=== PATIENT | female | born 1995 | race Hispanic/Latino ===

== ENCOUNTER 2024-05-18 17:05 | Day surgery (SDC) | payer OTHER ==
[2024-05-18] MEDS ORDERED: hydrALAZINE 20 MG/ML VIAL SLOW IVP PRN (18:54)
[2024-05-19 13:57] LABS: Chlamydia by PCR, Vaginal Swab Not Detected (NotDetected); GC by PCR, Vaginal Swab Not Detected (NotDetected)
== END 2024-05-18 21:12 | disposition home or self-care (01) ==
LOC: CSHLD/OP 17:05
PROVIDERS: ATTEND Family Medicine
DX: O46.93 Antepartum hemorrhage, unspecified, third trimester (principal); O99.891 Other specified diseases and conditions complicating pregnancy; R51.9 Headache, unspecified; Z79.82 Long term (current) use of aspirin; Z79.899 Other long term (current) drug therapy; Z3A.34 34 weeks gestation of pregnancy
CPT/HCPCS: 87480; 87491; 87510; 87591; 87660; 99285

== ENCOUNTER 2024-06-22 06:32 | Inpatient (IN) | payer MEDICAID, OTHER, SELFPAY ==
[2024-06-22] MEDS ORDERED: Dexamethasone 10 MG/ML VIAL ONE (08:42)
[2024-06-22] MEDS ORDERED: Oxytocin 10 UNITS/ML VIAL ONE (08:42)
[2024-06-22] MEDS ORDERED: PHENYLEPHRINE-NS 100 MCG/ML 10 ML SYRINGE ONE (08:42)
[2024-06-22] MEDS ORDERED: Ondansetron PF 4 MG/2 ML Vial ONE (08:42)
[2024-06-22] MEDS ORDERED: Morphine PF 10 MG/10 ML VIAL ONE (08:42)
[2024-06-22] MEDS ORDERED: Ketorolac Tromethamine 30 MG (1 mL) VIAL ONE (21:07)
[2024-06-23] MEDS ORDERED: Ketorolac Tromethamine 30 MG (1 mL) VIAL ONE ×2 (03:31→11:35)
[2024-06-23] MEDS ORDERED: Docusate 100 MG CAP ONE ×2 (08:30→21:10)
[2024-06-23] MEDS ORDERED: Prenatal Vitamin 1 TAB ONE (08:30)
[2024-06-23] MEDS ORDERED: HYDROcodone/Acetaminophen 5/325 mg Tablet ONE ×3 (08:31→21:10)
[2024-06-23 18:25] LABS: #Basophils 0.08 10x3/uL (0.0-0.2); #Eosinophils 0.15 10x3/uL (0.0-0.5); #Monocytes 1.56 10x3/uL (0.0-1.1); #Neutrophils 12.92 10x3/uL (1.5-8.4); %Basophils 0.4 % (0.0-2.0); %Eosinophils 0.8 % (0.0-6.0); %Lymphocytes 22.6 % (18.0-47.0); %Monocytes 8.1 % (0.0-10.0); %Neutrophils 67.2 % (40.0-75.0); Hematocrit 32.8 % (34.9-44.5); Hemoglobin 11.3 g/dL (12.0-15.5); Mean Corpuscular HGB CONC 34.5 g/dL (32.0-36.0); Mean Corpuscular Hemoglobin 30.5 pg (27.0-33.0); Mean Corpuscular Volume 88.4 fL (81.6-98.3); Platelet Count 245 10x3/uL (150-450); RBC Distribution Width 14.5 % (11.5-14.5); Red Blood Cell (RBC) Count 3.71 10x6/uL (3.90-5.03); White Blood Cell (WBC) Count 19.3 10x3/uL (3.5-10.5)
[2024-06-23] MEDS ORDERED: Ibuprofen 800 MG TAB ONE (21:10)
[2024-06-24] MEDS ORDERED: HYDROcodone/Acetaminophen 5/325 mg Tablet ONE (05:13)
[2024-06-24] MEDS ORDERED: Ibuprofen 800 MG TAB PO SCH (06:00)
[2024-06-24] MEDS ORDERED: Acetaminophen 325 MG TAB PO PRN (07:49)
[2024-06-24] MEDS ORDERED: HYDROcodone/Acetaminophen 5/325 mg Tablet PO PRN (07:49)
[2024-06-24] MEDS ORDERED: Simethicone Chewable 80 MG TAB PO PRN (07:49)
[2024-06-24] MEDS ORDERED: Boostrix 0.5 ML (Tdap) VIAL (>/=7 yrs of age) IM ONE (07:49)
[2024-06-24] MEDS ORDERED: hydrALAZINE 20 MG/ML VIAL SLOW IVP PRN (07:49)
[2024-06-24] MEDS ORDERED: Prenatal Vitamin 1 TAB ONE (08:42)
[2024-06-24] MEDS ORDERED: Prenatal Vitamin 1 TAB PO SCH (09:00)
[2024-06-24 10:01] VITALS: BP 101/59; TEMP 98
[2024-07-03 12:04] LABS: Hematocrit 34.7 % (34.9-44.5); Hemoglobin 11.9 g/dL (12.0-15.5); Mean Corpuscular HGB CONC 34.3 g/dL (32.0-36.0); Mean Corpuscular Hemoglobin 30.2 pg (27.0-33.0); Mean Corpuscular Volume 88.1 fL (81.6-98.3); Red Blood Cell (RBC) Count 3.94 10x6/uL (3.90-5.03)
[2024-07-03 12:05] LABS: Mean Platelet Volume 12.2 fL (7.4-10.4); Platelet Count 257 10x3/uL (130-400); RBC Distribution Width 14.6 % (11.5-14.5)
[2024-07-03 16:36] LABS: HBsAg Index 0.16 S/CO (0-0.99); Hep B Surf Ag - L&D NonReactive S/CO (NonReactive)
[2024-07-03 16:37] LABS: Syphilis Antibody Nonreactive (Nonreactive); Syphilis Antibody Index 0.04 S/CO (<1.00 Non-Reactive)
== END 2024-06-24 11:20 | disposition home or self-care (01) | DRG 785 ==
LOC: EDBD → CSHPP 06:32
PROVIDERS: ADMIT Family Medicine; ATTEND Family Medicine
PROC: 10D00Z1 Extraction of Products of Conception, Low, Open Approach (ICD-10-PCS; principal; 2024-06-22)
PROC: 0UB70ZZ Excision of Bilateral Fallopian Tubes, Open Approach (ICD-10-PCS; 2024-06-22)
DX: O34.211 Maternal care for low transverse scar from previous cesarean delivery (principal); Z3A.39 39 weeks gestation of pregnancy; Z37.0 Single live birth; O99.214 Obesity complicating childbirth; E66.812 Obesity, class 2
CPT/HCPCS: 51702; 85025; 85027; 86780; 86850; 86900; 86901; 87340; 88302; J1100; J2274; J2405; J2590